=== PATIENT | female | born 1995 | race Caucasian/White ===

== ENCOUNTER 2017-08-12 17:56 | Emergency (ER) | payer SELFPAY ==
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
[2017-08-12 18:42] VITALS: BP 115/76
== END 2017-08-12 18:37 | disposition home or self-care (01) ==
LOC: ED 17:56
DX: M54.6 Pain in thoracic spine (principal); H83.03 Labyrinthitis, bilateral
CPT/HCPCS: 99283